=== PATIENT | male | born 1950 | race Caucasian/White ===

== ENCOUNTER 2019-07-23 09:30 | Emergency (ER) | payer MEDICARE, MEDICAID, SELFPAY ==
[2019-07-23 09:33] VITALS: BMI 30.7
--- NOTE | 2019-07-23 09:37 | CT_ITS ---
WS: [id number] CT HEAD TECHNIQUE: Noncontrast CT of the head obtained from the skullbase to the vertex. CLINICAL INFORMATION: Depression, mood change COMPARISON: None. DLP: 567.[address] scans at [facility] use at least one of these dose optimization techniques: automat ed exposure control; mA and/or kV adjustment per patient size (includes targeted exams where dose is matched to clinical indication); or iterative reconstruction. FINDINGS: No evidence of intracranial hemorrhage or mass effect. Ventricular system and basal cisterns are tripathi nt. Mild small vessel changes with mild to moderate parenchymal volume loss. No extra-axial fluid col lections. No evidence of mass or mass effect. Normal dillard-white differentiation. Paranasal sinuses and mastoid air cells are well aerated. .Normal visualized soft tissues. Intracrani al vascular calcification. CT/CT head wo con* [id number] IMPRESSION: 1. No evidence of intracranial hemorrhage or mass effect. 2. Mild small vessel changes. Mild to Moderate parenchymal volume loss. 3. No acute intracranial findings.
--- NOTE | 2019-07-23 09:37 | ECG_ITS ---
Measurements Intervals [place] Rate: 80 P: 45 MN: 188 QRS: -32 QRSD: 110 T: 78 QT: 355 QTc: 411 SINUS RHYTHM LEFT ATRIAL ENLARGEMENT [-0.15mV P WAVE IN V1/V2] LEFT AXIS DEVIATION [QRS AXIS < -30] S1-S2-S3 PATTERN, CONSISTENT WITH PULMONARY DISEASE, RVH, OR NORMAL VARIANT INCOMPLETE RIGHT BUNDLE BRANCH BLOCK [90+ ms QRS DURATION, TERMINAL R IN V1/V2, 40+ Electronically Signed On 07-23-2019 10:59:40 CDT by Aubrey Quevedo [email or web address] shannon
--- NOTE | 2019-07-23 09:37 | XR_ITS ---
WS: [id number] XR chest 1V portable [id number] REASON FOR EXAM: psych med clearance FINDINGS: Tortuous ascending aorta is noted. No true aneurysms are seen. The heart is not enlarged. The peripheral lungs are well aerated. There is no pneumonia, pleural effusion, pulmonary edema, pneu mothorax, or mass effect. The hilum and apices are normal. XR/XR chest 1V portable [id number] IMPRESSION: Tortuous descending aorta Negative chest for active pathology.
[2019-07-23 09:38] VITALS: BP 191/132; PULSE 78; RESP 18; TEMP 36.6; O2SAT 96
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
[2019-07-23 10:27] LABS: Basophils % 0.1 %; Eosinophils # 0.1 10^3/uL (0.0-0.8); Eosinophils % 0.8 %; Lymphocytes # 1.1 10^3/uL (0.8-4.8); Lymphocytes % 14.4 %; Mean Corpuscular HGB Conc 35.4 g/dL (30.0-36.0); Mean Corpuscular Hemoglobin 32.5 pg (28.0-34.0); Mean Corpuscular Volume 91.8 fL (80-94); Mean Platelet Volume 9.3 fL (7.4-10.4); Monocytes # 0.7 10^3/uL (0.2-0.9); Monocytes % 9.7 %; Neutrophils # 5.4 10^3/uL (1.8-7.7); Neutrophils % 74.5 %; Nucleated Red Blood Cells % 0 %; Platelet Count 275 10^3/cmm (130-400); Red Blood Count 5.23 10^6/uL (4.1-5.3); Red Cell Distribution Width 12.7 % (12.1-15.1); White Blood Count 7.3 10^3/uL (4.0-10.0)
[2019-07-23 10:47] LABS: Alanine Aminotransferase 22 U/L (0-41); Albumin Level 4.7 g/dL (3.5-5.2); Alkaline Phosphatase 68 IU/L (40-130); Aspartate Amino Transferase 23 U/L (0-40); Blood Urea Nitrogen 15 mg/dL (8-23); Calcium 10.1 mg/dL (8.5-10.5); Carbon Dioxide 26 mmol/L (22-29); Chloride 97 mmol/L (98-107); Globulin 3.2 g/dL (1.3-4.6); Glomerular Filtration Rate 84.2 mL/min (90-130); Glucose 119 mg/dL (65-115); Osmolality Calculated 275 mOsm/kg (285-295); Salicylate 1.6 mg/dL (3-10); Sodium 134 mmol/L (136-145); Total Bilirubin 0.9 mg/dL (0.15-1.2); Total Protein 7.9 g/dL (6.6-8.7)
[2019-07-23 10:48] LABS: Acetaminophen < 5.0 ug/mL (10-30); Alcohol Level < 10 mg/dL (0-10)
[2019-07-23 10:56] LABS: Thyroid Stimulating Hormone 6.62 uIU/mL (0.27-4.20)
[2019-07-23 11:12] LABS: Add Urine Microscopic? NO
[2019-07-23 11:19] LABS: Bilirubin Urine Neg (NEGATIVE); Blood Urine Neg (Negative); Glucose Urine UA Norm (Normal); Ketones Urine Negative (Negative); Leukocyte Esterase Urine Negative (Negative); Nitrate Urine Negative (Negative); Protein Urine Neg (Negative); Specific Gravity, Urine 1.005 (1.005-1.030); Urine Appearance Clear (CLEAR); Urine Color Straw (Yellow); Urobilinogen Urine Norm (Negative); pH Urine 7 (5-7)
[2019-07-23 11:28] LABS: Amphetamines Screen Urine Negative (Negative); Barbiturates Screen Urine Negative (Negative); Benzodiazepines Screen Urine Negative (Negative); Cocaine Screen Urine Negative (Negative); Opiate Screen Urine Negative (Negative); PCP Screen Urine Negative (Negative); THC Screen Urine Negative (Negative)
[2019-07-23] MEDS: cloNIDine 0.1 mg Tablet PO (11:47)
[2019-07-23 12:35] VITALS: BP 165/116; PULSE 77; O2SAT 98
[2019-07-23 14:13] LABS: Vitamin B12 364 pg/mL (232-1245)
--- NOTE | 2019-07-23 14:21 | PC.NURSE ---
Pt on phone with Basilio
--- NOTE | 2019-07-23 15:31 | DCPLANNER ---
industrial production manager was asked to call [employer] [facility] to inquire about how much a non medical transportation would cost patient. industrial production manager called [employer], was told that it would be around 137.00, immigration case manager informed nurse how much the trip would cost patient.
[2019-07-23 15:34] VITALS: BP 178/141; PULSE 79; RESP 16; O2SAT 96
== END 2019-07-23 15:37 | disposition home or self-care (01) ==
PROVIDERS: Emergency Provider Nurse Practitioner Family; Family Provider Nurse Practitioner Family
DX: F41.9 Anxiety disorder, unspecified (principal)
CPT/HCPCS: 12345; 36415; 70450; 71045; 80053; 80306; 80307; 81003; 82607; 84443; 85025; 93005; 93010; 99282; 99283; A9270

== ENCOUNTER 2019-11-14 13:33 | Emergency (ER) | payer MEDICARE, MEDICAID, SELFPAY ==
[2019-11-14 13:36] VITALS: BP 191/142; PULSE 88; RESP 18; TEMP 36.6; O2SAT 98; BMI 29.1
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
[2019-11-14 14:18] LABS: Basophils % 0.1 %; Eosinophils # 0.1 10^3/uL (0.0-0.8); Eosinophils % 0.7 %; Hemoglobin 15.5 g/dL (11.7-16.6); Lymphocytes # 1.2 10^3/uL (0.8-4.8); Lymphocytes % 15.6 %; Mean Corpuscular HGB Conc 35.2 g/dL (30.0-36.0); Mean Corpuscular Hemoglobin 33.2 pg (28.0-34.0); Mean Corpuscular Volume 94.2 fL (80-94); Mean Platelet Volume 9.3 fL (7.4-10.4); Monocytes # 0.6 10^3/uL (0.2-0.9); Monocytes % 8.4 %; Neutrophils # 5.52 10^3/uL (1.8-7.7); Neutrophils % 74.9 %; Nucleated Red Blood Cells % 0 %; Platelet Count 258 10^3/cmm (130-400); Red Blood Count 4.67 10^6/uL (4.1-5.3); White Blood Count 7.4 10^3/uL (4.0-10.0)
[2019-11-14] MEDS: LORazepam 1 mg Tablet PO (14:18)
[2019-11-14] MEDS: cloNIDine 0.1 mg Tablet 0.2 MG PO (14:18)
[2019-11-14 14:20] VITALS: BP 197/117; PULSE 88; RESP 18; O2SAT 97
[2019-11-14 14:39] LABS: Alanine Aminotransferase 19 U/L (0-41); Albumin Level 4.7 g/dL (3.5-5.2); Alkaline Phosphatase 61 IU/L (40-130); Anion Gap 16.8 (5-19); Aspartate Amino Transferase 22 U/L (0-40); Blood Urea Nitrogen 16 mg/dL (8-23); Calcium 9.8 mg/dL (8.5-10.5); Carbon Dioxide 23 mmol/L (22-29); Chloride 98 mmol/L (98-107); Creatinine Clr Calc Pharmacy 68.6516; Globulin 2.3 g/dL (1.3-4.6); Glomerular Filtration Rate 74.3 mL/min (90-130); Glucose 112 mg/dL (65-115); Osmolality Calculated 275 mOsm/kg (285-295); Potassium 3.8 mmol/L (3.5-5.1); Salicylate 0.5 mg/dL (3-10); Sodium 134 mmol/L (136-145)
[2019-11-14 14:52] LABS: Amphetamines Screen Urine Negative (Negative); Barbiturates Screen Urine Negative (Negative); Benzodiazepines Screen Urine Negative (Negative); Cocaine Screen Urine Negative (Negative); Opiate Screen Urine Negative (Negative); PCP Screen Urine Negative (Negative); THC Screen Urine Negative (Negative)
[2019-11-14 14:57] LABS: Acetaminophen < 5.0 ug/mL (10-30); Alcohol Level < 10 mg/dL (0-10)
[2019-11-14 15:16] VITALS: BP 152/101; PULSE 77; RESP 18; O2SAT 95
[2019-11-14 16:34] VITALS: BP 130/87; PULSE 74; RESP 18; O2SAT 94
[2019-11-14 17:23] VITALS: BP 130/87; PULSE 74; RESP 16; TEMP 36.6; O2SAT 94
--- NOTE | 2019-11-16 10:54 | DCPLANNER ---
technology adoption manager had message to speak with patient about out patient therapy. technology adoption manager called patient to explain to patient about services at [facility]. Patient stated that he was not interested in services at this time. Patient did say that he knew about [facility] and if he needed help that he would contact them.
== END 2019-11-14 17:33 | disposition home or self-care (01) ==
PROVIDERS: Emergency Provider Emergency Medicine
DX: F43.10 Post-traumatic stress disorder, unspecified (principal); F32.9 Major depressive disorder, single episode, unspecified
CPT/HCPCS: 12345; 36415; 80053; 80306; 80307; 85025; 99284